=== PATIENT | male | born 1935 | race Native Hawaiian/Other Pacific Islander ===

== ENCOUNTER → 2017-08-19 | Outpatient (CLI) | payer MEDICARE, MEDICAID ==
[~2017-08-19] MED LIST: ASPI-825 PO; ATOR10TA84 PO; BUDE10.2 IH; CALC1TAB90 PO; DONE10TA43 PO; METF-444 PO; MULT1TAB PO; OMEG300C3 PO; TIOT185 IH
[2017-08-19 13:45] VITALS: BP 95/47
== END | disposition home or self-care (01) ==
LOC: SRCNTR 11:36
PROVIDERS: ATTEND Internal Medicine Clinical Cardiac Electrophysiology
DX: Z45.018 Encounter for adjustment and management of other part of cardiac pacemaker (principal); I48.91 Unspecified atrial fibrillation; I63.9 Cerebral infarction, unspecified; I10 Essential (primary) hypertension
CPT/HCPCS: G0463